=== PATIENT | female | born 1980 | race African-American/Black ===

== ENCOUNTER 2018-12-17 18:39 | Inpatient (IN) | payer OTHER, MEDICAID ==
[~2018-12-17] VITALS: Ht 170.2 cm; Wt 96.9 kg
[~2018-12-17 18:39] MED LIST: LURA40TA PO
[2018-12-17] MEDS ORDERED: LORAZEPAM 2MG/ML CPJ IV STA (19:01)
[2018-12-17 19:39] LABS: BASOPHILS % 0.3 % (0.0-2.0); HEMATOCRIT. 43.1 % (36.0-48.0); HEMOGLOBIN. 14.4 g/dL (12.0-16.0); MEAN CORPUSCULAR HEMOGLOBIN 29.8 pg (28.0-32.0); MEAN CORPUSCULAR VOLUME 89.4 fL (81.0-99.0); MEAN PLATELET VOLUME 10.3 fl (7.4-10.4); MONOCYTES % 3.6 % (2.0-8.0); NEUTROPHILS % 88.1 % (40.0-76.0); PLATELET 311 x1000/uL (130-400); RED BLOOD CELL COUNT 4.82 mill/uL (4.2-5.4)
[2018-12-17 19:46] LABS: CHLORIDE 111 mEq/L (98-107)
[2018-12-17 19:50] LABS: ETHANOL BLOOD < 10 mg/dL
[2018-12-17] MEDS ORDERED: ASPIRIN 325MG TABLET PO NR (20:30)
[2018-12-17 21:02] LABS: CLARITY URINE CLOUDY (CLEAR); COLOR URINE ORANGE (YELLOW); KETONES URINE TRACE (NEGATIVE); LEUKOCYTE ESTERASE URINE 1+ (NEGATIVE); NITRITE URINE NEGATIVE (NEGATIVE); OCCULT BLOOD URINE 3+ (NEGATIVE); PROTEIN URINE 3+ (NEGATIVE); SPECIFIC GRAVITY URINE 1.019 (1.005-1.030)
[2018-12-17 21:27] LABS: *BARBITURATES SCREEN URINE NEGATIVE (NEGATIVE); *BENZODIAZEPINES SCREEN URINE NEGATIVE (NEGATIVE); *COCAINE SCREEN URINE NEGATIVE (NEGATIVE)
[2018-12-17 21:28] LABS: CANNABINOID URINE SCREEN NEGATIVE (NEGATIVE); METHADONE URINE SCREEN NEGATIVE (NEGATIVE); OPIATES URINE SCREEN NEGATIVE (NEGATIVE); PHENCYCLIDINE URINE SCREEN NEGATIVE (NEGATIVE)
[2018-12-17 21:29] LABS: *AMPHETAMINES SCREEN URINE PRESUMTIVE POSITIVE (NEGATIVE)
[2018-12-17] MEDS ORDERED: SODIUM CHLORIDE 0.9% 1,000 ML IV ONE ×2 (21:30)
[2018-12-17 22:07] LABS: CREATINE KINASE 8241 IU/L (26-192)
[2018-12-17] MEDS ORDERED: DIPHENHYDRAMINE 50MG/ML VIAL IV PRN (22:15)
[2018-12-17] MEDS ORDERED: CLONIDINE 0.1MG TABLET PO PRN (22:15)
[2018-12-17] MEDS ORDERED: NA PHOS,M-B/NA PHOS,DI-BA ENEMA 118ML PR PRN (22:15)
[2018-12-17] MEDS ORDERED: IPRATROPIUM/ALBUTEROL 0.5-3(2.5)MG/3ML NEB INH PRN (22:15)
[2018-12-17] MEDS ORDERED: DOCUSATE SODIUM 100MG CAPSULE PO PRN (22:15)
[2018-12-17] MEDS ORDERED: ACETAMINOPHEN 325MG TABLET PO PRN (22:15)
[2018-12-17] MEDS ORDERED: MAGNESIUM/ALUMINUM HYDROXIDE/SIMETHICONE 30ML UDC PO PRN (22:15)
[2018-12-17] MEDS ORDERED: ONDANSETRON HCL 4MG/2ML INJ IV PRN (22:15)
[2018-12-17] MEDS ORDERED: ACETAMINOPHEN 650MG/20.3ML UDC GT PRN (22:15)
[2018-12-17] MEDS ORDERED: HYDROCODONE/ACETAMINOPHEN 5/325MG TABLET PO PRN (22:15)
[2018-12-17] MEDS ORDERED: ACETAMINOPHEN 650MG SUPP PR PRN (22:15)
[2018-12-17] MEDS ORDERED: POTASSIUM CHLORIDE 20MEQ TABLET SR PO PRN (22:30)
[2018-12-17] MEDS ORDERED: SODIUM CHLORIDE 0.45% 1,000 ML IV SCH (22:30)
[2018-12-17] MEDS ORDERED: MORPHINE SULFATE 4 MG/ML CPJ (NOT FOR IM USE) IV PRN (22:30)
[2018-12-17 23:45] LABS: INR 1.3; PROTHROMBIN TIME 12.9 sec (9.6-11.0)
[2018-12-18] VITALS (9 sets, daily range): BP systolic 120–141; BP diastolic 76–91
[2018-12-18] MEDS ORDERED: MAGNESIUM 2 G PREMIX 50 ML IV SCH
[2018-12-18] MEDS ORDERED: LORAZEPAM 2MG/ML CPJ IV PRN (03:30)
[2018-12-18 06:12] LABS: BASOPHILS % 0.8 % (0.0-2.0); EOSINOPHILS % 0.5 % (0.0-5.0); HEMATOCRIT. 39.4 % (36.0-48.0); HEMOGLOBIN. 13.2 g/dL (12.0-16.0); LYMPHOCYTES % 17.5 % (20.0-50.0); MEAN CORPUSCULAR HEMOGLOBIN 29.8 pg (28.0-32.0); MEAN CORPUSCULAR VOLUME 89.2 fL (81.0-99.0); MEAN PLATELET VOLUME 9.3 fl (7.4-10.4); MONOCYTES % 4.8 % (2.0-8.0); NEUTROPHILS % 76.4 % (40.0-76.0); PLATELET 236 x1000/uL (130-400); RED BLOOD CELL COUNT 4.41 mill/uL (4.2-5.4); RED CELL DISTRIBUTION WIDTH 13.2 % (11.6-14.6)
[2018-12-18 06:20] LABS: CHLORIDE 118 mEq/L (98-107)
[2018-12-18 06:27] LABS: LDL CHOLESTEROL 75 mg/dL (5-100)
[2018-12-18 06:28] LABS: HDL CHOLESTEROL 48 mg/dL (40-59)
[2018-12-18 06:32] LABS: CREATINE KINASE MB FRACTION 90.2 ng/mL (0.5-3.6)
[2018-12-18] MEDS ORDERED: HALOPERIDOL LACTATE 5MG/ML VIAL IM PRN (08:45)
[2018-12-18 09:20] LABS: CREATINE KINASE 55233 IU/L (26-192)
[2018-12-18] MEDS: CARVEDILOL 3.125 MG TABLET PO SCH ×2 (09:57→21:38)
[2018-12-18] MEDS: ENOXAPARIN 100MG/ML SYR SUBCUT SCH ×2 (09:57→21:36)
[2018-12-18] MEDS: SODIUM CHLORIDE 0.45% 1,000 ML IV SCH (09:58)
[2018-12-18] MEDS ORDERED: POTASSIUM CHLORIDE INJ 40 MEQ in DEXT 5% WATER 500 ML IV SCH (10:00)
[2018-12-18 10:52] LABS: CHLORIDE 120 mEq/L (98-107)
[2018-12-18] MEDS: SODIUM CHLORIDE 0.9% INJ 3ML FLUSH IVF SCH ×2 (14:22→21:35)
[2018-12-18 15:19] LABS: CREATINE KINASE MB FRACTION 78.3 ng/mL (0.5-3.6)
[2018-12-18] MEDS ORDERED: ATORVASTATIN CALCIUM 10MG TABLET PO SCH (21:00)
[2018-12-19] VITALS (11 sets, daily range): BP systolic 101–120; BP diastolic 44–72
[2018-12-19] MEDS: SODIUM CHLORIDE 0.45% 1,000 ML IV SCH ×3 (00:25→17:26)
[2018-12-19] MEDS: SODIUM CHLORIDE 0.9% INJ 3ML FLUSH IVF SCH ×3 (05:18→22:49)
[2018-12-19 06:48] LABS: CHLORIDE 111 mEq/L (98-107)
[2018-12-19 07:02] LABS: CREATINE KINASE MB FRACTION 39.2 ng/mL (0.5-3.6)
[2018-12-19 08:14] LABS: CREATINE KINASE 35520 IU/L (26-192)
[2018-12-19] MEDS ORDERED: INFLUENZA VIRUS VACCINE(AFLURIA) 0.5ML SYR IM ONE (09:00)
[2018-12-19] MEDS ORDERED: PNEUMOCOCCAL 23-VAL P-SAC VAC 0.5 ML IM ONE (09:00)
[2018-12-19] MEDS: CARVEDILOL 3.125 MG TABLET PO SCH ×2 (09:09→20:17)
[2018-12-19] MEDS: ENOXAPARIN 100MG/ML SYR SUBCUT SCH ×2 (09:09→20:16)
[2018-12-19 13:00] LABS: HEPATITIS B SURFACE AB 6.3 mIU/mL
[2018-12-19 13:11] LABS: HEPATITIS B SURFACE ANTIGEN NEGATIVE
[2018-12-20] VITALS: BP 127/84
[2018-12-20] MEDS: SODIUM CHLORIDE 0.45% 1,000 ML IV SCH (02:15)
[2018-12-20 04:00] VITALS: BP 115/72
[2018-12-20] MEDS: SODIUM CHLORIDE 0.9% INJ 3ML FLUSH IVF SCH ×3 (05:07→21:37)
[2018-12-20 06:15] LABS: HEPATITIS B CORE ANTIBODY Negative (Negative); HIV SCREEN 4G Non Reactive (Non Reactive)
[2018-12-20 08:00] VITALS: BP 113/74
[2018-12-20] MEDS: ENOXAPARIN 100MG/ML SYR SUBCUT SCH ×2 (08:30→21:30)
[2018-12-20] MEDS: CARVEDILOL 3.125 MG TABLET PO SCH ×2 (08:31→21:32)
[2018-12-20 12:00] VITALS: BP 102/61
[2018-12-20 16:00] VITALS: BP 124/82
[2018-12-20 20:00] VITALS: BP 119/78
[2018-12-20 20:16] LABS: CHLORIDE 109 mEq/L (98-107)
[2018-12-20 20:53] LABS: CREATINE KINASE 12872 IU/L (26-192)
[2018-12-21] VITALS: BP 130/76
[2018-12-21 04:00] VITALS: BP 122/76
[2018-12-21] MEDS: SODIUM CHLORIDE 0.9% INJ 3ML FLUSH IVF SCH (06:16)
[2018-12-21 07:39] LABS: CHLORIDE 110 mEq/L (98-107)
[2018-12-21 08:00] VITALS: BP 117/69
[2018-12-21] MEDS ORDERED: POTASSIUM CHLORIDE 20MEQ TABLET SR PO NR (08:00)
[2018-12-21 08:47] LABS: CREATINE KINASE 10628 IU/L (26-192)
[2018-12-21] MEDS: CARVEDILOL 3.125 MG TABLET PO SCH (09:14)
[2018-12-21] MEDS: ENOXAPARIN 100MG/ML SYR SUBCUT SCH (09:15)
[2018-12-21 10:00] LABS: BASOPHILS % 0.5 % (0.0-2.0); EOSINOPHILS % 4.3 % (0.0-5.0); HEMATOCRIT. 35.2 % (36.0-48.0); HEMOGLOBIN. 11.7 g/dL (12.0-16.0); LYMPHOCYTES % 49.3 % (20.0-50.0); MEAN CORPUSCULAR VOLUME 90.3 fL (81.0-99.0); MEAN PLATELET VOLUME 9.9 fl (7.4-10.4); MONOCYTES % 7.6 % (2.0-8.0); NEUTROPHILS % 38.3 % (40.0-76.0); PLATELET 227 x1000/uL (130-400); RED CELL DISTRIBUTION WIDTH 12.9 % (11.6-14.6)
[2018-12-21 12:00] VITALS: BP 127/81
[2018-12-21 13:31] VITALS: BP 127/81
== END 2018-12-21 14:22 | disposition home or self-care (01) | DRG 812 ==
LOC: ER 18:39 → 3WST 21:20 → EDBEDREQTM 21:23 → EDBEDREQ 21:23 → ENRESERV 12-18 03:43 → 3WST 12-18 08:30 → 6EST 12-20 00:10
PROVIDERS: ADMIT Family Medicine; ATTEND Family Medicine
PROC: 0JBR0ZZ Excision of Left Foot Subcutaneous Tissue and Fascia, Open Approach (ICD-10-PCS; principal; 2018-12-21)
PROC: 0JBQ0ZZ Excision of Right Foot Subcutaneous Tissue and Fascia, Open Approach (ICD-10-PCS; 2018-12-21)
DX: T43.621A Poisoning by amphetamines, accidental (unintentional), initial encounter (principal); K72.00 Acute and subacute hepatic failure without coma; N17.0 Acute kidney failure with tubular necrosis; G92 Toxic encephalopathy; E87.0 Hyperosmolality and hypernatremia; E87.6 Hypokalemia; N39.0 Urinary tract infection, site not specified; M62.82 Rhabdomyolysis; F11.10 Opioid abuse, uncomplicated; F14.90 Cocaine use, unspecified, uncomplicated; F15.10 Other stimulant abuse, uncomplicated; F17.210 Nicotine dependence, cigarettes, uncomplicated; S90.822A Blister (nonthermal), left foot, initial encounter; S90.821A Blister (nonthermal), right foot, initial encounter; X58.XXXA Exposure to other specified factors, initial encounter; R23.8 Other skin changes; F20.9 Schizophrenia, unspecified; Z88.8 Allergy status to other drugs, medicaments and biological substances; Y93.89 Activity, other specified; Y92.89 Other specified places as the place of occurrence of the external cause; Y99.8 Other external cause status; E86.0 Dehydration; Z79.899 Other long term (current) drug therapy
CPT/HCPCS: 36415; 71045; 76770; 80048; 80061; 80076; 80305; 80320; 82550; 82553; 83036; 83735; 83880; 84443; 84484; 87389; 90686; 90732; 93005; 93306; 96374; 96375; 97162; 99291; J1200; J1650; J2060; J2270; J3475; J3480; J7060; G0480

== ENCOUNTER 2019-09-05 01:30 | Emergency (ER) | payer MEDICAID ==
[~2019-09-05] VITALS: Ht 172.7 cm; Wt 82.0 kg
[2019-09-05] MEDS ORDERED: OLANZAPINE 10 MG/VIAL IM STA (02:21)
[2019-09-05] MEDS ORDERED: LORAZEPAM 2MG/ML CPJ IM ONE ×2 (02:45→03:45)
[2019-09-05 04:53] LABS: BASOPHILS % 0.4 % (0.0-2.0); HEMATOCRIT. 39.7 % (36.0-48.0); HEMOGLOBIN. 13.2 g/dL (12.0-16.0); LYMPHOCYTES % 9.8 % (20.0-50.0); MEAN CORPUSCULAR HEMOGLOBIN 29.9 pg (28.0-32.0); MEAN CORPUSCULAR VOLUME 89.9 fL (81.0-99.0); MEAN PLATELET VOLUME 9.9 fl (7.4-10.4); MONOCYTES % 4.8 % (2.0-8.0); PLATELET 281 x1000/uL (130-400); RED BLOOD CELL COUNT 4.41 mill/uL (4.2-5.4); RED CELL DISTRIBUTION WIDTH 12.8 % (11.6-14.6)
[2019-09-05 05:01] LABS: CHLORIDE 109 mEq/L (98-107)
[2019-09-05 05:06] LABS: ETHANOL BLOOD < 10 mg/dL
[2019-09-05 05:08] LABS: HCG SCREEN NEGATIVE
[2019-09-05 06:03] LABS: CLARITY URINE CLOUDY (CLEAR); COLOR URINE DARK YELLOW (YELLOW); KETONES URINE 1+ (NEGATIVE); LEUKOCYTE ESTERASE URINE NEGATIVE (NEGATIVE); NITRITE URINE NEGATIVE (NEGATIVE); OCCULT BLOOD URINE 3+ (NEGATIVE); PROTEIN URINE 2+ (NEGATIVE); SPECIFIC GRAVITY URINE 1.028 (1.005-1.030); UROBILINOGEN URINE 0.2 E.U./dL (0.2-1.0)
[2019-09-05] MEDS ORDERED: SODIUM CHLORIDE 0.9% 1,000 ML IV ONE (06:15)
[2019-09-05 06:23] LABS: *BARBITURATES SCREEN URINE NEGATIVE (NEGATIVE); *BENZODIAZEPINES SCREEN URINE NEGATIVE (NEGATIVE); *COCAINE SCREEN URINE NEGATIVE (NEGATIVE)
[2019-09-05 06:24] LABS: METHADONE URINE SCREEN NEGATIVE (NEGATIVE); OPIATES URINE SCREEN NEGATIVE (NEGATIVE); PHENCYCLIDINE URINE SCREEN NEGATIVE (NEGATIVE)
[2019-09-05 06:56] LABS: *AMPHETAMINES SCREEN URINE PRESUMTIVE POSITIVE (NEGATIVE); CANNABINOID URINE SCREEN PRESUMTIVE POSITIVE (NEGATIVE)
[2019-09-05 12:18] VITALS: BP 134/80
== END 2019-09-05 12:21 | disposition home or self-care (01) ==
LOC: ER 02:14
DX: F29 Unspecified psychosis not due to a substance or known physiological condition (principal); F20.9 Schizophrenia, unspecified; F10.10 Alcohol abuse, uncomplicated; Y90.0 Blood alcohol level of less than 20 mg/100 ml; Z88.1 Allergy status to other antibiotic agents
CPT/HCPCS: 36415; 80053; 80305; 80320; 81003; 81025; 84703; 85025; 93005; 96372; 99284; J2060; J3490; J7030; G0480

== ENCOUNTER 2019-09-27 10:28 | Emergency (ER) | payer MEDICAID ==
[~2019-09-27] VITALS: Ht 165.1 cm; Wt 70.0 kg
[2019-09-27] MEDS ORDERED: HALOPERIDOL LACTATE 5MG/ML VIAL IM STA (10:52)
[2019-09-27] MEDS ORDERED: LORAZEPAM 2MG/ML CPJ IM STA (10:52)
[2019-09-27 13:11] LABS: BASOPHILS % 0.7 % (0.0-2.0); EOSINOPHILS % 0.2 % (0.0-5.0); HEMATOCRIT. 38.4 % (36.0-48.0); LYMPHOCYTES % 15.4 % (20.0-50.0); MEAN CORPUSCULAR HEMOGLOBIN 30.5 pg (28.0-32.0); MEAN CORPUSCULAR VOLUME 90.3 fL (81.0-99.0); MEAN PLATELET VOLUME 9.7 fl (7.4-10.4); MONOCYTES % 5.4 % (2.0-8.0); NEUTROPHILS % 78.3 % (40.0-76.0); PLATELET 237 x1000/uL (130-400); RED BLOOD CELL COUNT 4.26 mill/uL (4.2-5.4); RED CELL DISTRIBUTION WIDTH 12.5 % (11.6-14.6)
[2019-09-27 13:16] LABS: CHLORIDE 105 mEq/L (98-107)
[2019-09-27 13:20] LABS: ETHANOL BLOOD < 10 mg/dL
[2019-09-27 14:32] LABS: *BARBITURATES SCREEN URINE NEGATIVE (NEGATIVE); *BENZODIAZEPINES SCREEN URINE NEGATIVE (NEGATIVE)
[2019-09-27 14:33] LABS: *COCAINE SCREEN URINE NEGATIVE (NEGATIVE); METHADONE URINE SCREEN NEGATIVE (NEGATIVE)
[2019-09-27 14:34] LABS: CANNABINOID URINE SCREEN NEGATIVE (NEGATIVE)
[2019-09-27 14:38] LABS: *AMPHETAMINES SCREEN URINE PRESUMTIVE POSITIVE (NEGATIVE); OPIATES URINE SCREEN PRESUMTIVE POSITIVE (NEGATIVE); PHENCYCLIDINE URINE SCREEN PRESUMTIVE POSITIVE (NEGATIVE)
[2019-09-28 16:30] VITALS: BP 110/62
== END 2019-09-28 17:01 | disposition home or self-care (01) ==
LOC: ER 10:36
DX: F23 Brief psychotic disorder (principal); F15.10 Other stimulant abuse, uncomplicated; F11.10 Opioid abuse, uncomplicated; Z88.1 Allergy status to other antibiotic agents; Z78.1 Physical restraint status; Z59.0 Homelessness
CPT/HCPCS: 36415; 80053; 80305; 80307; 80320; 80329; 81025; 82962; 85025; 96372; 99284; J1630; J2060; Z7610; G0480

== ENCOUNTER 2019-10-09 00:16 | Emergency (ER) | payer MEDICAID ==
[~2019-10-09] VITALS: Ht 167.6 cm; Wt 90.0 kg
[2019-10-09 00:49] VITALS: BP 160/94
== END 2019-10-09 02:00 | disposition left against medical advice (07) ==
LOC: ER 00:16
DX: L29.9 Pruritus, unspecified (principal); F16.10 Hallucinogen abuse, uncomplicated; F15.10 Other stimulant abuse, uncomplicated; F17.210 Nicotine dependence, cigarettes, uncomplicated; Z88.1 Allergy status to other antibiotic agents
CPT/HCPCS: 99281

== ENCOUNTER 2020-09-21 01:19 | Emergency (ER) | payer MEDICAID ==
[~2020-09-21] VITALS: Ht 167.6 cm; Wt 100.0 kg
[2020-09-21] MEDS ORDERED: OLANZAPINE 10MG TABLET PO STA (02:54)
[2020-09-21 03:28] LABS: CHLORIDE 101 mEq/L (98-107)
[2020-09-21 03:32] LABS: ETHANOL BLOOD < 10 mg/dL
[2020-09-21 03:33] LABS: BASOPHILS % 0.6 % (0.0-2.0); EOSINOPHILS % 3.9 % (0.0-5.0); HEMATOCRIT. 41.4 % (36.0-48.0); LYMPHOCYTES % 41.1 % (20.0-50.0); MEAN CORPUSCULAR HEMOGLOBIN 30.3 pg (28.0-32.0); MEAN CORPUSCULAR VOLUME 89.8 fL (81.0-99.0); MEAN PLATELET VOLUME 9.7 fl (7.4-10.4); MONOCYTES % 9.4 % (2.0-8.0); PLATELET 257 x1000/uL (130-400); RED BLOOD CELL COUNT 4.61 mill/uL (4.2-5.4); RED CELL DISTRIBUTION WIDTH 12.7 % (11.6-14.6)
[2020-09-21 03:35] LABS: HCG SCREEN NEGATIVE
[2020-09-21 04:31] LABS: CLARITY URINE CLEAR (CLEAR); COLOR URINE YELLOW (YELLOW); KETONES URINE 3+ (NEGATIVE); LEUKOCYTE ESTERASE URINE NEGATIVE (NEGATIVE); NITRITE URINE NEGATIVE (NEGATIVE); OCCULT BLOOD URINE 3+ (NEGATIVE); PROTEIN URINE 1+ (NEGATIVE); SPECIFIC GRAVITY URINE 1.031 (1.005-1.030)
[2020-09-21 04:44] LABS: *BARBITURATES SCREEN URINE NEGATIVE (NEGATIVE); *BENZODIAZEPINES SCREEN URINE NEGATIVE (NEGATIVE); *COCAINE SCREEN URINE NEGATIVE (NEGATIVE); METHADONE URINE SCREEN NEGATIVE (NEGATIVE)
[2020-09-21 04:45] LABS: CANNABINOID URINE SCREEN NEGATIVE (NEGATIVE); OPIATES URINE SCREEN NEGATIVE (NEGATIVE); PHENCYCLIDINE URINE SCREEN NEGATIVE (NEGATIVE)
[2020-09-21 04:54] LABS: *AMPHETAMINES SCREEN URINE PRESUMTIVE POSITIVE (NEGATIVE)
[2020-09-21 09:53] VITALS: BP 128/69
== END 2020-09-21 09:56 | disposition home or self-care (01) ==
LOC: ER 01:19
DX: F15.121 Other stimulant abuse with intoxication delirium (principal); F16.10 Hallucinogen abuse, uncomplicated; F20.9 Schizophrenia, unspecified
CPT/HCPCS: 36415; 80053; 80305; 80307; 80320; 80329; 81003; 84703; 85025; 93005; 99285; G0480

== ENCOUNTER 2020-12-17 13:43 | Emergency (ER) | payer MEDICAID ==
[~2020-12-17] VITALS: Ht 167.6 cm; Wt 84.0 kg
[2020-12-17 13:49] VITALS: BP 124/78
[2020-12-17] MEDS ORDERED: TETANUS, DIPHTHERIA, PERTUSSIS VAC/PF 0.5ML (>7YR OLD) IM ONE (15:15)
[2020-12-17] MEDS ORDERED: CEPHALEXIN 250MG CAPSULE PO ONE (15:15)
[2020-12-17] MEDS ORDERED: ACETAMINOPHEN 325MG TABLET PO ONE (15:15)
== END 2020-12-17 15:51 | disposition home or self-care (01) ==
LOC: ER 13:43
DX: T30.0 Burn of unspecified body region, unspecified degree (principal); F15.10 Other stimulant abuse, uncomplicated; F16.10 Hallucinogen abuse, uncomplicated; Z88.1 Allergy status to other antibiotic agents; Z98.890 Other specified postprocedural states
CPT/HCPCS: 90471; 90715; 99283

== ENCOUNTER 2021-05-14 00:26 | Emergency (ER) | payer MEDICAID ==
[~2021-05-14] VITALS: Ht 167.6 cm; Wt 100.0 kg
[2021-05-14 00:28] VITALS: BP 129/99
[2021-05-14] MEDS ORDERED: TOPUD MT (01:51)
== END 2021-05-14 02:30 | disposition home or self-care (01) ==
LOC: ER 00:26
DX: S10.96XA Insect bite of unspecified part of neck, initial encounter (principal); S90.562A Insect bite (nonvenomous), left ankle, initial encounter; S20.469A Insect bite (nonvenomous) of unspecified back wall of thorax, initial encounter; F31.9 Bipolar disorder, unspecified; Z88.1 Allergy status to other antibiotic agents; W57.XXXA Bitten or stung by nonvenomous insect and other nonvenomous arthropods, initial encounter; Y93.89 Activity, other specified; Y92.018 Other place in single-family (private) house as the place of occurrence of the external cause
CPT/HCPCS: 99281

== ENCOUNTER 2021-05-24 23:57 | Emergency (ER) | payer MEDICAID ==
[~2021-05-24] VITALS: Ht 172.7 cm; Wt 73.0 kg
[~2021-05-24 23:57] MED LIST changes: +TOPUD MT
[2021-05-24 23:59] VITALS: BP 132/82
[2021-05-25 02:41] LABS: BASOPHILS % 0.9 % (0.0-2.0); EOSINOPHILS % 1.6 % (0.0-5.0); HEMATOCRIT. 38.3 % (36.0-48.0); HEMOGLOBIN. 12.8 g/dL (12.0-16.0); LYMPHOCYTES % 39.6 % (20.0-50.0); MEAN CORPUSCULAR HEMOGLOBIN 29.6 pg (28.0-32.0); MEAN PLATELET VOLUME 8.4 fl (7.4-10.4); MONOCYTES % 6.1 % (2.0-8.0); NEUTROPHILS % 51.8 % (40.0-76.0); PLATELET 359 x1000/uL (130-400); RED BLOOD CELL COUNT 4.31 mill/uL (4.2-5.4)
[2021-05-25 02:44] LABS: CHLORIDE 105 mEq/L (98-107)
[2021-05-25] MEDS ORDERED: PERM60CR4 TP (03:21)
== END 2021-05-25 03:45 | disposition home or self-care (01) ==
LOC: ER 23:57
DX: R21 Rash and other nonspecific skin eruption (principal); R06.02 Shortness of breath; F15.10 Other stimulant abuse, uncomplicated; F16.10 Hallucinogen abuse, uncomplicated; Z88.1 Allergy status to other antibiotic agents; Z98.890 Other specified postprocedural states
CPT/HCPCS: 36415; 71045; 80053; 83880; 84484; 85025; 93005; 99285

== ENCOUNTER 2022-02-19 01:33 | Emergency (ER) | payer MEDICAID ==
[~2022-02-19] VITALS: Ht 167.6 cm; Wt 95.0 kg
[~2022-02-19 01:33] MED LIST changes: -LURA40TA PO; +LURA40TA2 PO; +PERM60CR4 TP
[2022-02-19 07:05] LABS: BASOPHILS % 0.4 % (0.0-2.0); EOSINOPHILS % 0.3 % (0.0-5.0); HEMATOCRIT. 36.6 % (36.0-48.0); HEMOGLOBIN. 12.2 g/dL (12.0-16.0); LYMPHOCYTES % 18.3 % (20.0-50.0); MEAN CORPUSCULAR HEMOGLOBIN 30.2 pg (28.0-32.0); MEAN PLATELET VOLUME 8.6 fl (7.4-10.4); MONOCYTES % 6.2 % (2.0-8.0); NEUTROPHILS % 74.8 % (40.0-76.0); PLATELET 360 x1000/uL (130-400); RED BLOOD CELL COUNT 4.03 mill/uL (4.2-5.4); RED CELL DISTRIBUTION WIDTH 13.4 % (11.6-14.6)
[2022-02-19 07:15] LABS: CHLORIDE 105 mEq/L (98-107)
[2022-02-19 07:22] LABS: ETHANOL BLOOD < 10 mg/dL
[2022-02-19 11:02] LABS: CLARITY URINE TURBID (CLEAR); COLOR URINE YELLOW (YELLOW); KETONES URINE NEGATIVE (NEGATIVE); LEUKOCYTE ESTERASE URINE TRACE (NEGATIVE); NITRITE URINE NEGATIVE (NEGATIVE); OCCULT BLOOD URINE 2+ (NEGATIVE); PROTEIN URINE 2+ (NEGATIVE); SPECIFIC GRAVITY URINE 1.023 (1.005-1.030)
[2022-02-19 11:52] LABS: *BARBITURATES SCREEN URINE NEGATIVE (NEGATIVE); *BENZODIAZEPINES SCREEN URINE NEGATIVE (NEGATIVE); *COCAINE SCREEN URINE NEGATIVE (NEGATIVE); CANNABINOID URINE SCREEN NEGATIVE (NEGATIVE); METHADONE URINE SCREEN NEGATIVE (NEGATIVE); OPIATES URINE SCREEN NEGATIVE (NEGATIVE)
[2022-02-19 11:53] LABS: *AMPHETAMINES SCREEN URINE PRESUMTIVE POSITIVE (NEGATIVE)
[2022-02-19 11:54] LABS: PHENCYCLIDINE URINE SCREEN PRESUMTIVE POSITIVE (NEGATIVE)
[2022-02-19 14:51] VITALS: BP 156/100
[2022-02-19] MEDS ORDERED: CEPH500C2 MT (16:43)
[2022-02-19] MEDS ORDERED: OLANZAPINE 10MG TABLET PO SCH (17:00)
[2022-02-19] MEDS ORDERED: NITROFURANTOIN 100MG M/M CAPSULE PO SCH (21:00)
== END 2022-02-19 17:11 | disposition home or self-care (01) ==
LOC: ER 01:33
DX: F25.9 Schizoaffective disorder, unspecified (principal); F15.10 Other stimulant abuse, uncomplicated; N39.0 Urinary tract infection, site not specified; F91.8 Other conduct disorders; F16.10 Hallucinogen abuse, uncomplicated; Z20.822 Contact with and (suspected) exposure to COVID-19; Z88.1 Allergy status to other antibiotic agents
CPT/HCPCS: 36415; 80053; 80305; 80320; 81003; 85025; 99285; C9803; U0003; U0005; G0480

== ENCOUNTER 2023-08-31 16:21 | Emergency (ER) | payer MEDICAID ==
[~2023-08-31] VITALS: Ht 172.7 cm; Wt 86.0 kg
[~2023-08-31 16:21] MED LIST changes: +CEPH500C2 MT
[2023-08-31 18:11] LABS: BASOPHILS % 0.6 % (0.0-2.0); EOSINOPHILS % 0.1 % (0.0-5.0); HEMATOCRIT. 40.3 % (36.0-48.0); HEMOGLOBIN. 13.5 g/dL (12.0-16.0); LYMPHOCYTES % 13.7 % (20.0-50.0); MEAN CORPUSCULAR HEMOGLOBIN 30.7 pg (28.0-32.0); MEAN CORPUSCULAR HGB CONC 33.6 g/dL (31.0-37.0); MEAN CORPUSCULAR VOLUME 91.3 fL (81.0-99.0); MEAN PLATELET VOLUME 8.1 fl (7.4-10.4); MONOCYTES % 5.9 % (2.0-8.0); NEUTROPHILS % 79.7 % (40.0-76.0); PLATELET 336 x1000/uL (130-400); RED BLOOD CELL COUNT 4.42 mill/uL (4.2-5.4); RED CELL DISTRIBUTION WIDTH 13.7 % (11.6-14.6); WHITE BLOOD COUNT 8.2 x1000/uL (4.5-11.0)
[2023-08-31 18:25] LABS: CLARITY URINE CLOUDY (CLEAR); COLOR URINE DARK YELLOW (YELLOW); GLUCOSE URINE NEGATIVE (NEGATIVE); KETONES URINE TRACE (NEGATIVE); LEUKOCYTE ESTERASE URINE NEGATIVE (NEGATIVE); NITRITE URINE NEGATIVE (NEGATIVE); OCCULT BLOOD URINE 2+ (NEGATIVE); PROTEIN URINE 2+ (NEGATIVE); SPECIFIC GRAVITY URINE 1.026 (1.005-1.030)
[2023-08-31 18:33] LABS: HCG SCREEN NEGATIVE
[2023-08-31 18:41] LABS: *AMPHETAMINES SCREEN URINE PRESUMPTIVE POSITIVE (NEGATIVE); *BARBITURATES SCREEN URINE NEGATIVE (NEGATIVE); *BENZODIAZEPINES SCREEN URINE PRESUMPTIVE POSITIVE (NEGATIVE); *COCAINE SCREEN URINE NEGATIVE (NEGATIVE); CANNABINOID URINE SCREEN NEGATIVE (NEGATIVE); ECSTASY MDMA SCREEN URINE CONF.TEST INDICATED (NEGATIVE); METHADONE URINE SCREEN Neg (NEGATIVE); OPIATES URINE SCREEN NEGATIVE (NEGATIVE); PHENCYCLIDINE URINE SCREEN NEGATIVE (NEGATIVE)
[2023-08-31 18:49] LABS: BACTERIA URINE 2+; SQUAMOUS EPITHELIAL CELL URINE 1+ /lpf (RARE/1+)
[2023-08-31 18:50] LABS: CALCIUM OXALATE CRYSTALS URINE 1+ /lpf; WBC URINE 0-2 /hpf (0-2)
[2023-08-31 18:51] LABS: MUCUS URINE 1+ /lpf (< = 2+)
[2023-08-31 18:52] LABS: ACETAMINOPHEN < 2 ug/mL (10-30); ALANINE AMINOTRANSFERASE 33 IU/L (10-49); ALBUMIN 4.4 g/dL (3.2-4.8); ASPARTATE AMINOTRANSFERASE 34 IU/L (<34); BILIRUBIN TOTAL 0.4 mg/dL (0.1-1.0); CALCIUM 9.5 mg/dL (8.7-10.4); CARBON DIOXIDE 27 mEq/L (21-32); CHLORIDE 102 mEq/L (98-107); CREATINE KINASE 343 IU/L (34-145); CREATININE 0.8 mg/dL (0.6-1.0); GLUCOSE 106 mg/dL (70-105); POTASSIUM 3.5 mEq/L (3.5-5.1); PROTEIN TOTAL 8.7 g/dL (6.0-8.3); SODIUM 140 mEq/L (136-145); THYROID STIMULATING HORMONE 1.89 uIU/mL (0.55-4.78); TROPONIN I HIGH SENSITIVITY 8 ng/L (3.0-34); UREA NITROGEN BLOOD 10 mg/dL (9-23)
[2023-08-31 19:11] LABS: ETHANOL BLOOD < 10 mg/dL (<10)
[2023-09-01] MEDS ORDERED: LORAZEPAM 2MG/ML CPJ IM ONE ×2 (08:00→09:45)
[2023-09-01] MEDS ORDERED: HALOPERIDOL LACTATE 5MG/ML VIAL IM ONE ×2 (08:00→09:45)
[2023-09-01] MEDS ORDERED: LORAZEPAM 2 MG/1 ML IM NR (09:45)
[2023-09-01] MEDS ORDERED: LORAZEPAM 2MG/ML CPJ IM NR (09:45)
[2023-09-01] MEDS ORDERED: HALOPERIDOL LACTATE 5MG/ML VIAL IM NR (09:45)
[2023-09-01] MEDS ORDERED: LORAZEPAM 2MG/ML UD SYRINGE IM NR (09:45)
[2023-09-01] MEDS ORDERED: OLANZAPINE 5MG TABLET ODT PO SCH (10:00)
[2023-09-01 13:50] VITALS: O2SAT 98
[2023-09-01 14:00] VITALS: BP 119/81; PULSE 100; RESP 24; TEMP 99.8
== END 2023-09-01 14:41 | disposition still patient (30) ==
LOC: ER 16:21
DX: F15.129 Other stimulant abuse with intoxication, unspecified (principal); F19.10 Other psychoactive substance abuse, uncomplicated; F20.9 Schizophrenia, unspecified; Z88.8 Allergy status to other drugs, medicaments and biological substances; Z20.822 Contact with and (suspected) exposure to COVID-19
CPT/HCPCS: 80053; 80305; 81003; 80307; 80329; 80320; 82550; 84703; 84443; 85025; 84484; 36415; 71045; 93005; 99291; 87426; 96372; C9803; Z7610; J1630; J2060; G0480

== ENCOUNTER 2024-11-16 05:34 | Emergency (ER) | payer MEDICAID ==
[~2024-11-16] VITALS: Ht 167.6 cm; Wt 98.6 kg
[2024-11-16 05:51] VITALS: O2SAT 99
[2024-11-16] MEDS: CEFTRIAXONE SODIUM 500MG VIAL IM ONE (06:56)
[2024-11-16] MEDS: METRONIDAZOLE 500MG TABLET PO ONE (06:57)
[2024-11-16] MEDS ORDERED: MULT-1146 MT (06:57)
[2024-11-16] MEDS ORDERED: CARB15DR EACHEYE (06:57)
[2024-11-16] MEDS: AZITHROMYCIN 500 MG TABLET PO ONE (06:57)
[2024-11-16] MEDS ORDERED: ISOP30DR11 EACH EAR (06:57)
[2024-11-16] MEDS ORDERED: [UNRECOGNIZED DRUG - CODE] TP (07:29)
[2024-11-16 08:40] VITALS: BP 158/89; PULSE 62; RESP 18; TEMP 37; O2SAT 99
[2024-11-16 09:05] LABS: CLARITY URINE CLEAR (CLEAR); COLOR URINE DARK YELLOW (YELLOW); GLUCOSE URINE NEGATIVE (NEGATIVE); KETONES URINE NEGATIVE (NEGATIVE); LEUKOCYTE ESTERASE URINE NEGATIVE (NEGATIVE); NITRITE URINE NEGATIVE (NEGATIVE); OCCULT BLOOD URINE 1+ (NEGATIVE); PH URINE 6.5 (4.5-8.0); PROTEIN URINE NEGATIVE (NEGATIVE); SPECIFIC GRAVITY URINE 1.014 (1.005-1.030); UROBILINOGEN URINE 0.2 E.U./dL (0.2-1.0)
[2024-11-16 10:02] LABS: SQUAMOUS EPITHELIAL CELL URINE NONE SEEN /lpf (RARE/1+)
[2024-11-16 10:03] LABS: BACTERIA URINE NONE SEEN; WBC URINE 0-2 /hpf (0-2); YEAST URINE NONE SEEN
[2024-11-18 08:08] LABS: CHLAMYDIA TRACHOMATIS NAA Negative (Negative); NEISSERIA GONORRHOEAE NAA Negative (Negative)
== END 2024-11-16 08:43 | disposition home or self-care (01) ==
LOC: ER 05:34
DX: Z11.3 Encounter for screening for infections with a predominantly sexual mode of transmission (principal); Z20.2 Contact with and (suspected) exposure to infections with a predominantly sexual mode of transmission; F15.10 Other stimulant abuse, uncomplicated; Z88.1 Allergy status to other antibiotic agents; Z79.899 Other long term (current) drug therapy; Z86.59 Personal history of other mental and behavioral disorders; Z98.890 Other specified postprocedural states
CPT/HCPCS: 99283; 87491; 87591; 81003; 36415; 96372; J0696

== ENCOUNTER 2025-04-06 02:18 | Emergency (ER) | payer MEDICAID ==
[~2025-04-06] VITALS: Ht 172.7 cm; Wt 86.0 kg
[~2025-04-06 02:18] MED LIST changes: +CARB15DR EACHEYE; +ISOP30DR11 EACH EAR; +MULT-1146 MT; +[UNRECOGNIZED DRUG - CODE] TP
[2025-04-06 02:29] VITALS: O2SAT 99
[2025-04-06 03:38] LABS: BASOPHILS % 0.8 % (0.0-2.0); EOSINOPHILS % 1.1 % (0.0-5.0); HEMATOCRIT. 37.8 % (36.0-48.0); HEMOGLOBIN. 12.6 g/dL (12.0-16.0); LYMPHOCYTES % 23.4 % (20.0-50.0); MEAN PLATELET VOLUME 8.8 fl (7.4-10.4); MONOCYTES % 6.7 % (2.0-8.0); NEUTROPHILS % 68.0 % (40.0-76.0); PLATELET 361 x1000/uL (130-400); RED BLOOD CELL COUNT 4.20 mill/uL (4.2-5.4); RED CELL DISTRIBUTION WIDTH 12.9 % (11.6-14.6)
[2025-04-06 03:46] LABS: HCG SCREEN NEGATIVE
[2025-04-06 03:50] LABS: CREATININE 0.8 mg/dL (0.6-1.0); UREA NITROGEN BLOOD 8 mg/dL (9-23)
[2025-04-06 03:51] LABS: ETHANOL BLOOD < 10 mg/dL (<10)
[2025-04-06] MEDS: QUETIAPINE FUMARATE 50MG TABLET PO ONE (03:55)
[2025-04-06 04:09] LABS: *AMPHETAMINES SCREEN URINE PRESUMPTIVE POSITIVE (NEGATIVE); *BARBITURATES SCREEN URINE NEGATIVE (NEGATIVE); *BENZODIAZEPINES SCREEN URINE NEGATIVE (NEGATIVE)
[2025-04-06 04:10] LABS: *COCAINE SCREEN URINE NEGATIVE (NEGATIVE); CANNABINOID URINE SCREEN NEGATIVE (NEGATIVE); ECSTASY MDMA SCREEN URINE CONF.TEST INDICATED (NEGATIVE); METHADONE URINE SCREEN NEGATIVE (NEGATIVE); OPIATES URINE SCREEN NEGATIVE (NEGATIVE); PHENCYCLIDINE URINE SCREEN NEGATIVE (NEGATIVE)
[2025-04-06 06:00] VITALS: BP 156/88; RESP 18; O2SAT 100
[2025-04-06 11:19] VITALS: PULSE 92
== END 2025-04-06 11:54 | disposition home or self-care (01) ==
LOC: ER 02:18
DX: R45.851 Suicidal ideations (principal); F20.9 Schizophrenia, unspecified; F15.90 Other stimulant use, unspecified, uncomplicated; R07.9 Chest pain, unspecified; Z59.00 Homelessness unspecified; Z20.822 Contact with and (suspected) exposure to COVID-19; Z79.899 Other long term (current) drug therapy; Z98.890 Other specified postprocedural states
CPT/HCPCS: 80305; 80048; 80307; 80329; 80320; 84703; 85025; 36415; 93005; 99284; 87426; Z7610; G0480